=== PATIENT | male | born 1975 | race Caucasian/White ===

== ENCOUNTER 2021-06-21 10:49 | Inpatient (IN) | payer BC, SELFPAY ==
[2021-06-21] VITALS (7 sets, daily range): BP systolic 123–171; BP diastolic 68–86; PULSE 84–106; RESP 15–22; TEMP 36.7; O2SAT 87–98; BMI 60.8
--- NOTE | 2021-06-21 11:07 | W.ED.PSYCHS ---
HPI - Psych General: Chief Complaint: Psychiatric Symptoms Stated Complaint: PSYCH History of Present Illness: HPI Narrative: 46-year-old male presents to the emergency room via EMS. Patient is having acute psychosis with visual and auditory hallucinations at various times he gets extremely aggressive. Is unable to give us any meaningful history he does mention that he has been on Zyprexa and risperidone in the past EMS said they were told he had just started it. EMS was called by a family member at home (mother). On their arrival there he was ambulatory and they were able to coax him to a cot. Patient is extremely large with a BMI of 61. Initially when we attempted to redirect him to sit on the exam gurney he began showing signs of aggressiveness. We were able to convince him eventually to move to the cot. He was given 2 mg of Ativan and 20 and Geodon prior to that. He is not able to give us any further history due to his acute psychosis. complaint: altered mental status Onset (ago): unknown Duration: constant History of same: Yes Relieving factors: none Exacerbating factors: none Associated psychiatric symptoms: auditory hallucinations and visual hallucinations Associated symptoms: Reports auditory hallucinations and visual hallucinations Treatments prior to arrival: none Review of Systems General: Reports: ROS unobtainable due to mental status Psych: Reports: visual hallucinations and auditory hallucinations [facility] ED PFSH: Medical History (Updated 06/24/21 @ 12:46 by Bhupendra Rosario MD) Bipolar 1 disorder HTN (hypertension) Morbid obesity Physical Exam Const: COMMON NORMALS: no acute distress GENERAL APPEARANCE: cooperative and comfortable HENMT: COMMON NORMALS: normocephalic, atraumatic and hearing grossly normal bilaterally HEAD & SCALP: normocephalic and atraumatic Neck/C-Spine: COMMON NORMALS: no JVD Resp: COMMON NORMALS: normal respiratory effort, No retractions, No use of accessory muscles and clear to auscultation bilaterally AUSCULTATION: clear to auscultation bilaterally Cardio: COMMON NORMALS: no JVD, regular rate, regular rhythm and No murmurs present (Cardio) RATE: regular rate RHYTHM: regular rhythm GI: COMMON NORMALS: Soft to palpation and No hepatosplenomegaly present AUSCULTATION: Yes normoactive bowel sounds PALPATION: Yes Soft to palpation, No Tenderness to palpation present (GI), No Guarding due to palpation present (GI) and Yes No hepatosplenomegaly present Extremity: COMMON NORMALS: normal to inspection, capillary refill normal, no clubbing, cyanosis or edema, no calf tenderness and no pedal edema Skin: COMMON NORMALS: no rashes or lesions noted GENERAL SKIN EXAM: no rashes or lesions noted Course Vital Signs: Vital signs: Vital Signs Temperature 98.7 F 06/25/21 14:00 Pulse Rate 86 06/25/21 15:11 Respiratory Rate 16 06/25/21 15:11 Blood Pressure 132/80 06/25/21 14:00 Pulse Oximetry 95 06/25/21 15:11 MDM - Psych MDM Narrative: Medical decision making narrative: Patient sats at the bedside have been around 90% when he is sitting up. He obviously has some sleep apnea although it does not appear he has been formally diagnosed. His mother had reported that he has been told he likely has sleep apnea, a but does not use a CPAP. Nursing a talk to the mother via phone. For a time he was on oxygen. We took him off of it on seated up when he is awake his sats will be in the 90 to 92% range. He does better sitting up I did a blood gas to evaluate him he is well compensated suspect this is his baseline and has been slightly exacerbated by the medications. At time of transfer he was able to follow commands and assist in his transfer to chair. Lab Data: Labs: Lab Results 06/21/21 06/21/21 12:44 12:44 WBC 11.5 10^3/uL H 10 ^3/uL (4.0-10.0) RBC 6.84 10^6/uL H 10 ^6/uL (4.1-5.3) Hgb 16.6 g/dL g/dL (11.7-16.6) Hct 55.0 % H % (42.0-52.0) MCV 80.4 fl fl (80-94) MCH 24.3 pg L pg (28.0-34.0) MCHC 30.2 g/dL g/dL (30.0-36.0) RDW 18.2 % H % (12.1-15.1) Plt Count 364 10^3/cmm 10^3 /cmm (130-400) MPV 8.9 fL fL (7.4-10.4) Neut % (Auto) 64.6 % % Lymph % (Auto) 26.8 % % [place] % (Auto) 4.0 % % Eos % (Auto) 3.5 % % Baso % (Auto) 0.8 % % Neut # (Auto) 7.44 10^3/uL 10^3 /uL (1.8-7.7) Lymph # (Auto) 3.1 10^3/uL 10^3/ uL (0.8-4.8) [place] # (Auto) 0.5 10^3/uL 10^3/ uL (0.2-0.9) Eos # (Auto) 0.4 10^3/uL 10^3/ uL (0.0-0.8) Baso # (Auto) 0.1 10^3/uL 10^3/ uL (0.0-0.1) Nucleated RBC % (a uto) 0 % % Nucleated RBCs # 0.0 /100WBC /100W BC Sodium 137 mmol/L mmol/L (136-145) Potassium 4.5 mmol/L mmol/L (3.5-5.1) Chloride 96 mmol/L L mmol/ L (98-107) Carbon Dioxide 25 mmol/L mmol/L (22-29) Anion Gap 20.5 H (5-19) BUN 10 mg/dL mg/dL (6-20) Creatinine 0.7 mg/dL mg/dL (0.7-1.2) GFR Calculation 121.4 mL/min mL/m in (90-130) Glucose 90 mg/dL mg/dL (65-115) Calculated Osmolal ity 283 mOsm/kg L mOs m/kg (285-295) Calcium 9.0 mg/dL mg/dL (8.5-10.5) Salicylates < 0.3 mg/dL L mg/ dL (3-10) Acetaminophen < 5.0 ug/mL L ug/ mL (10-30) Discharge Plan Discharge Patient Disposition: Admitted As Inpatient Admit Provider: Mal May Clinical Impression: Acute psychosis Condition: Stable Coding Level of Care Code ED Service Technician Copier for Chg Fwd Exam Comprehensive
[2021-06-21] MEDS: LORazepam 2 mg/mL INJ 1 mL IM (11:14)
[2021-06-21] MEDS: ziprasidone 20 mg/mL SDV IM (11:14)
[2021-06-21 12:51] LABS: Basophils # 0.1 10^3/uL (0.0-0.1); Basophils % 0.8 %; Eosinophils # 0.4 10^3/uL (0.0-0.8); Eosinophils % 3.5 %; Hemoglobin 16.6 g/dL (11.7-16.6); Lymphocytes # 3.1 10^3/uL (0.8-4.8); Lymphocytes % 26.8 %; Mean Corpuscular HGB Conc 30.2 g/dL (30.0-36.0); Mean Corpuscular Hemoglobin 24.3 pg (28.0-34.0); Mean Corpuscular Volume 80.4 fl (80-94); Mean Platelet Volume 8.9 fL (7.4-10.4); Monocytes # 0.5 10^3/uL (0.2-0.9); Neutrophils # 7.44 10^3/uL (1.8-7.7); Neutrophils % 64.6 %; Nucleated Red Blood Cells % 0 %; Platelet Count 364 10^3/cmm (130-400); Red Blood Count 6.84 10^6/uL (4.1-5.3); Red Cell Distribution Width 18.2 % (12.1-15.1); White Blood Count 11.5 10^3/uL (4.0-10.0)
[2021-06-21 13:11] LABS: Acetaminophen < 5.0 ug/mL (10-30); Blood Urea Nitrogen 10 mg/dL (6-20); Carbon Dioxide 25 mmol/L (22-29); Chloride 96 mmol/L (98-107); Glomerular Filtration Rate 121.4 mL/min (90-130); Glucose 90 mg/dL (65-115); Osmolality Calculated 283 mOsm/kg (285-295); Salicylate < 0.3 mg/dL (3-10); Sodium 137 mmol/L (136-145)
[2021-06-21 13:12] LABS: Anion Gap 20.5 (5-19); Potassium 4.5 mmol/L (3.5-5.1)
[2021-06-21] MEDS: OLANZapine 10 mg TABLET 20 MG PO (13:39)
[2021-06-21 15:38] LABS: ABG PCO2 49.3 mmHg (35-45); ABG PH Result 7.42 (7.35-7.45); Alveolar-Arterial Oxygen Gradi 4.6 mmHg (5-10); Arterial Blood Gas Hematocrit 51.1 % (42-52); Base Excess ABG 5.9 mmol/L (-2.0-2.0); Blood Gas Allen Test Pos; Blood Gas Operator Identificat ED; Blood Gas Sample Site Radial, left; Blood Gas Sample Type Arterial; Carboxyhemoglobin 1.3 %THgb (0.4-20.1); HCO3 ABG 31.9 mmol/L (22-26); HGB O2 Sat 83.6 % (95-100); Ionized Calcium Level - ABG 1.2 mmol/L (1.1-1.4); Methemoglobin 0.7 % (0.4-1.5); Oxygen Device ROOM AIR; Oxygen Saturation ABG 85.4; PO2 ABG 54.5 mmHg (80.0-100.0); Potassium Level - ABG 3.7 mmol/L (3.5-5.0); Total Hemoglobin 16.7 g/dL (14-18)
--- NOTE | 2021-06-21 20:00 | PC.NURSE ---
pt continues to be sedated, up in bariatric wheelchair, 3.5lL o2 per nasal canula in place. pt is unable to assist staff in position change of any kind.
--- NOTE | 2021-06-22 00:14 | PC.NURSE ---
pt continues to be lethargic, arousable to lite pain for moments only, confused, oriented only to self. pt is on 4L o2 per simple mask placed by respiratory therapist.
[2021-06-22 05:53] VITALS: O2SAT 90
[2021-06-22 06:00] VITALS: BP 140/91; PULSE 96; RESP 18; O2SAT 92
--- NOTE | 2021-06-22 06:40 | P.NPUHP_ITS ---
Providers/Chief Complaint Admitting Physician: Mal May MD Primary Care Provider: Melissa Alva MD Chief Complaint: PSYCH HPI NPU History of Present Illness Hima Nicolas is a 46 year old male who was admitted through the emergency room with the following report: HPI - Psych General: Chief Complaint: Psychiatric Symptoms Stated Complaint: PSYCH History of Present Illness: HPI Narrative: 46-year-old male presents to the emergency room via EMS. Patient is having acute psychosis with visual and auditory hallucinations at various times he gets extremely aggressive. Is unable to give us any meaningful history he does mention that he has been on Zyprexa and risperidone in the past EMS said they were told he had just started it. EMS was called by a family member at home (mother). On their arrival there he was ambulatory and they were able to coax him to a cot. Patient is extremely large with a BMI of 61. Initially when we attempted to redirect him to sit on the exam gurney he began showing signs of aggressiveness. We were able to convince him eventually to move to the cot. He was given 2 mg of Ativan and 20 and Geodon prior to that. He is not able to give us any further history due to his acute psychosis. complaint: altered mental status Onset (ago): unknown Duration: constant History of same: Yes Relieving factors: none Exacerbating factors: none Associated psychiatric symptoms: auditory hallucinations and visual hallucinations Associated symptoms: Reports auditory hallucinations and visual hallucinations Treatments prior to arrival: none The emergency room physician filled out an affidavit stating patient presented to the ER acutely psychotic with visual and auditory hallucinations . He initiated a 96-hour hold. He was admitted to the neuropsychiatry unit for definitive treatment of his psychosis. He is confused and I unable to give much history. What history he gives is probably unreliable. He really had to think about most answers that he gave. Sometimes he was unable to answer my questions. 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 He says that he walks to the bus on his own and when he gets to [facility] he walks to his classroom and is sitting in a regular office chair most of the time. He says that the last time that he went to school was Friday. He says that on Friday his leg was hurting and he was afraid that his leg would break if he got up out of his recliner and went to school. At some point on Friday he was watching the news and became confused. He denies hearing any voices or seeing anything. He says that he went to sleep and somehow he ended up in the emergency room. He denies ever seeing a psychiatrist or being in a psychiatric hospital. He says that he is taking risperidone 1 mg, lisinopril and hydrochlorothiazide. He does say that he has gained a lot of weight over the last 10 years. His mother called and spoke to the director. She said that he has bipolar disorder and had a break 12 years ago. He has been on risperidone since then and has not had a break until recently. She said that he had gained substantial weight over that 12 years and she felt that we should change him to something else. Evidently his doctor tried to change him to Zyprexa but he is only taken that for about 3 days. Meds NPU Home Medications Medication Instructions Recorded Confirmed Last Taken Type Fish Oil 1 cap PO DAILY 06/21/21 06/21/21 Unknown History Vitamin B-12 1 tab PO DAILY 06/21/21 06/21/21 Unknown History aspirin 325 mg PO QAM 06/21/21 06/21/21 Unknown History hydrochlorothiazide 12.5 mg PO BEDTIME 06/21/21 06/21/21 Unknown History lisinopril 20 mg PO DAILY 06/21/21 06/21/21 Unknown History olanzapine 5 mg PO DAILY 06/21/21 06/21/21 Unknown History risperidone 1 mg PO BEDTIME 06/21/21 06/21/21 Unknown History Allergies Allergy/AdvReac Type Severity Reaction Status Date / Time No Known Allergies Allergy Verified 06/21/21 13:49 PFS NPU PFS: Medical History (Updated 06/21/21 @ 17:43 by Harjit Graham DO) Bipolar 1 disorder Morbid obesity Mental Status Exam MSE Comments: This is a 46-year old morbidly obese male who appears about his stated age. He is in a bariatric bed with an oxygen mask on. He is pleasant and cooperative and in no acute distress. psychomotor activity is decreased. It is probably normal for a person of his weight laying in bed Speech is at a regular rate and rhythm, normal volume, good articulation, not pressured. Alert, oriented X3 Attention and concentration appears to be intact. Memory is intact Mood is good, I am a happy person. Affect is euthymic. Thought process is logical and goal-directed. Thought content: Denies auditory and visual hallucinations. No delusions or paranoia are noted. No current suicidal ideation, and no homicidal ideation. Fund of knowledge is appears to be average. Insight and judgment appear to be significantly impaired. Impulse control is def initely impaired. Vitals/I&O/Wt Last Vital Signs Temp 98.0 F 06/21/21 17:33 Pulse 96 06/22/21 06:00 Resp 18 06/22/21 06:00 BP 140/91 06/22/21 06:00 Pulse Ox 92 06/22/21 06:00 Weight last 48 hrs Weight 226.796 kg Data NPU : 06/21/21 12:44 06/21/21 12:44 A&P Additional A&P Information Plan: 1. Continue his medical medications. Discontinue Risperdal. Abilify 5 mg every morning 2. Continue every 15 minute checks for safety. 3. Encourage individual, group and milieu therapies. 4. Encourage sober living treatment after discharge at the highest level of care to which he is willing to commit. 5. We will monitor for safety for himself in the community prior to discharge. Involuntary Hold Information 96 Hour Hold: 96 Hour Involuntary Admission: Yes Attestations NPU Medical Necessity Statement*: Inpatient hospitalization is medically necessary and the clinically appropriate intervention at this time. We will initiate medications and make changes as indicated. He will be in the hospital for over 2 midnights. Likely length of stay 4-6 days Coding Level of Care Code Acute Pigs Feet Finisher for Kris Salazar
[2021-06-22 08:07] VITALS: PULSE 101; O2SAT 88
[2021-06-22] MEDS: aspirin 325 mg Tablet PO (09:47)
[2021-06-22] MEDS: omega-3 fatty acids 1,000 mg Capsule 1000 MG PO (09:47)
[2021-06-22] MEDS: cyanocobalamin 1,000 mcg Tablet 1000 MCG PO (09:47)
[2021-06-22] MEDS: lisinopril 20 mg Tablet PO (09:47)
[2021-06-22 14:00] VITALS: BP 104/72; PULSE 96; RESP 18; TEMP 37; O2SAT 91
[2021-06-22] MEDS: ARIPiprazole 10 mg Tablet 5 MG PO (14:14)
[2021-06-22] MEDS: hydroCHLOROthiazide 25 mg Tablet 12.5 MG PO (20:18)
[2021-06-22] MEDS: risperiDONE 1 mg Tablet PO (20:18)
[2021-06-22 20:43] VITALS: BP 109/66; PULSE 83; RESP 17; TEMP 36.9; O2SAT 92
[2021-06-22 21:46] VITALS: PULSE 77; O2SAT 91
[2021-06-23] VITALS (8 sets, daily range): BP systolic 100–109; BP diastolic 67–70; PULSE 82–116; RESP 18–19; O2SAT 89–94
--- NOTE | 2021-06-23 07:42 | XRR_ITS ---
PROCEDURE INFORMATION: Exam: XR Chest Exam date and time: 06/23/2021 7:42 AM Age: 46 years old Clinical indication: Shortness of breath; Patient HX: SOB; Additional info: Dyspnea/cough TECHNIQUE: Imaging protocol: XR of the chest. Views: 1 view. Total images: 1 COMPARISON: No relevant prior studies available. FINDINGS: Lungs: Trace bilateral mid lung and bibasilar atelectasis or scar. Pleural spaces: Unremarkable. No pleural effusion. No pneumothorax. Heart/Mediastinum: Unremarkable. No cardiomegaly. Bones/joints: Spinal degenerative changes are evident. XR/XR chest 1V portable [id number] IMPRESSION: Trace bilateral mid lung and bibasilar atelectasis or scar.
[2021-06-23] MEDS: aspirin 325 mg Tablet PO (08:29)
[2021-06-23] MEDS: ARIPiprazole 10 mg Tablet 5 MG PO (08:30)
[2021-06-23] MEDS: lisinopril 20 mg Tablet PO (08:32)
[2021-06-23] MEDS: cyanocobalamin 1,000 mcg Tablet 1000 MCG PO (08:32)
[2021-06-23] MEDS: omega-3 fatty acids 1,000 mg Capsule 1000 MG PO (08:32)
--- NOTE | 2021-06-23 11:05 | P.NPUPN_ITS ---
Subjective NPU Subjective: Interval history: He continues to be fairly confused. He said that he did remember talking with me yesterday but did not remember what we talked about. He said that he was somewhat reluctant to take the Abilify because he wanted to talk to his family doctor about it first. He did take it and does not have any ill effects thus far. 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 Did not have any idea how long it had been since he had work. He mentions a couple of times that the world was one-way when he went to sleep last night but it might be different today. It was June when he went to sleep last night but was not sure that it was still June now. He did remember getting a chest x-ray earlier today. He remembered what he had for breakfast and said that it was not very good. He has had 2 doses of Abilify 5 mg so far. His oxygen gets down in the mid 80s when he is away from his oxygen. We got a chest x-ray and respiratory therapy consult. Mental Status Exam MSE Comments: This is a 46-year old morbidly obese male who appears about his stated age. He is in a bariatric bed with an oxygen mask on. He is pleasant and cooperative and in no acute distress. psychomotor activity is decreased. It is probably normal for a person of his weight laying in bed Speech is at a regular rate and rhythm, normal volume, good articulation, not pressured. Alert, oriented X3 Attention and concentration appears to be intact. Memory is intact Mood is good, I am a happy person. Affect is euthymic. Thought process is logical and goal-directed. Thought content: Denies auditory and visual hallucinations. No delusions or paranoia are noted. No current suicidal ideation, and no homicidal ideation. Fund of knowledge is appears to be average. Insight and judgment appear to be significantly impaired. Impulse control is definitely impaired. Cognition: Patient Appearance: Disheveled/Poor Hygiene Level of Consciousness: Inappropriate Patient Cognition Impaired: Yes Ability to Follow Directions: Poor Patient Orientation (long list): Person, Place, Time, Name and Age Comprehension Ability: No Impairment Hallucination Type: None Delusion Description: Not Present Thought Process: Appropriate Affect: Affect Description: Calm Behavior: Patient Behavior: Cooperative Speech Pattern: Clear Vitals/I&O/Wt Last Vital Signs Temp 98.4 F 06/22/21 20:43 Pulse 91 06/23/21 09:40 Resp 18 06/23/21 09:40 BP 109/67 06/23/21 06:00 Pulse Ox 94 06/23/21 09:40 Data NPU : 06/21/21 12:44 06/21/21 12:44 A&P Additional A&P Information This is a 46-year-old morbidly obese male who was brought in for psychosis including auditory hallucinations. He has been very confused and has very bad short-term memory. Plan: 1. Continue his medical medications. Abilify 5 mg every morning 2. Continue every 15 minute checks for safety. 3. Encourage individual, group and milieu therapies. 4. Encourage sober living treatment after discharge at the highest level of care to which he is willing to commit. 5. We will monitor for safety for himself in the community prior to discharge. Involuntary Hold Information 96 Hour Hold: 96 Hour Involuntary Admission: Yes Attestations NPU Medical Necessity Statement*: Inpatient hospitalization is medically necessary and the clinically appropriate intervention at this time. We will initiate medications and make changes as indicated. Coding Level of Care Code Acute Rounding Machine Operator for Kris Salazar
--- NOTE | 2021-06-23 14:50 | PC.NURSE ---
Patient up and walking with staff. Patient on 4L during walk, heart rate 116 and O2 sat down to 89%. After walk, O2 sat 94%, hr 101. Patient denies SOB or chest pain. Patient does deny smoking history.
--- NOTE | 2021-06-23 18:42 | CTR_ITS ---
PROCEDURE INFORMATION: Exam: CTA Chest With Contrast Exam date and time: 06/23/2021 6:42 PM Age: 46 years old Clinical indication: Shortness of breath; Patient HX: SOB. D dimer of over 15. Best scan obtained due to patient body habitus. ; Additional info: Pe TECHNIQUE: Imaging protocol: Computed tomographic angiography of the chest with contrast. 3D rendering (Not supervised by radiologist): MIP and/or 3D reconstructed images were created by the technologist. Radiation optimization: All CT scans at this facility use at least one of these dose optimization techniques: automated exposure control; mA and/or kV adjustment per patient size (includes targeted exams where dose is matched to clinical indication); or iterative reconstruction. Contrast material: VISI 320; Contrast volume: 95 ml; Contrast route: INTRAVENOUS (IV); COMPARISON: CR (CHEST, ) 06/23/2021 8:45 AM RADIATION DOSE METRICS: Total DLP (mGy-cm): 625.52 FINDINGS: Pulmonary arteries: No pulmonary emboli identified in the main, right, and left pulmonary arteries. The pulmonary arterial tree beyond this cannot be well evaluated due to artifact. Aorta: No thoracic aortic aneurysm identified. Lungs: Patchy airspace opacities in the right upper lobe (mild), right lower lobe (moderate), left upper lobe (mild), and left lower lobe (moderate). These may represent any combination of atelectasis and pneumonia. Pleural spaces: No pneumothorax or pleural effusion. Heart: Heart size within normal limits. Lymph nodes: Unremarkable. No enlarged lymph nodes. Bones/joints: Mild degenerative changes of the thoracic spine. Soft tissues: Unremarkable. CT/CT angio chest PE protcl [id number] IMPRESSION: 1. No pulmonary emboli identified in the main, right, and left pulmonary arteries. The pulmonary arterial tree beyond this cannot be well evaluated due to artifact. 2. Lungs: Patchy airspace opacities in the right upper lobe (mild), right lower lobe (moderate), left upper lobe (mild), and left lower lobe (moderate). These may represent any combination of atelectasis and pneumonia.
--- NOTE | 2021-06-23 19:05 | PC.NURSE ---
AFTER WALKING PATIENT HIS O2 STATS CONTINUED TO BE BETWEEN 89-92%. I CALLED DR. HERNANDEZ AGAIN AND TOLD HIM PATIENT CONTINUED TO BE CONFUSED AND 02 STATS CONTINUED TO DROP DURING AMBULATION. DURING REST THE HIGHEST HIS 02 WAS 94% ON 4L. I SPOKE TO DR. CARRASQUILLO AND HE HAS ORDERED LAB WORK AND TRANSFERRED PATIENT TO [facility] 112-1.
[2021-06-23 19:11] LABS: Basophils # 0.1 10^3/uL (0.0-0.1); Basophils % 0.6 %; Eosinophils # 0.4 10^3/uL (0.0-0.8); Eosinophils % 3.8 %; Lymphocytes # 2.5 10^3/uL (0.8-4.8); Mean Corpuscular HGB Conc 29.4 g/dL (30.0-36.0); Mean Corpuscular Hemoglobin 24.4 pg (28.0-34.0); Mean Corpuscular Volume 82.9 fl (80-94); Mean Platelet Volume 9.3 fL (7.4-10.4); Monocytes # 0.6 10^3/uL (0.2-0.9); Monocytes % 5.6 %; Neutrophils # 6.78 10^3/uL (1.8-7.7); Neutrophils % 65.7 %; Nucleated Red Blood Cells % 0 %; Platelet Count 328 10^3/cmm (130-400); Red Blood Count 6.15 10^6/uL (4.1-5.3); Red Cell Distribution Width 16.8 % (12.1-15.1); White Blood Count 10.3 10^3/uL (4.0-10.0)
[2021-06-23 19:30] LABS: SARS Covid-2 Antigen Negative (Negative)
[2021-06-23 19:37] LABS: NT Pro B Type Natriuretic Pept 11 pg/mL (0-125); Procalcitonin 0.07 ng/mL (0-0.5)
[2021-06-23 19:41] LABS: D Dimer 15.39 ug/mIFEU (0-0.59)
[2021-06-23 19:48] LABS: Thyroid Stimulating Hormone 1.94 uIU/mL (0.27-4.20)
[2021-06-23 19:49] LABS: Alanine Aminotransferase 13 U/L (0-41); Albumin Level 3.5 g/dL (3.5-5.2); Alkaline Phosphatase 81 IU/L (40-130); Anion Gap 17.2 (5-19); Aspartate Amino Transferase 15 U/L (0-40); Blood Urea Nitrogen 30 mg/dL (6-20); Calcium 8.4 mg/dL (8.5-10.5); Carbon Dioxide 27 mmol/L (22-29); Chloride 96 mmol/L (98-107); Globulin 3.4 g/dL (1.3-4.6); Glomerular Filtration Rate 59.4 mL/min (90-130); Glucose 109 mg/dL (65-115); Iron 27 ug/dL (59-158); Osmolality Calculated 289 mOsm/kg (285-295); Potassium 4.2 mmol/L (3.5-5.1); Sodium 136 mmol/L (136-145); Total Bilirubin 0.5 mg/dL (0.15-1.2); Total Iron Binding Capacity 299 mcg/dl; Total Protein 6.9 g/dL (6.6-8.7); Unsaturated Iron Binding 272 ug/dL (112-347)
--- NOTE | 2021-06-23 21:08 | ECG_ITS ---
[facility] Test Date: 2021-06-23 Pat Name: Hima Nicolas Department: Room: 112 Gender: Male Combine Driver: : 1975 Requested By: Paola Moy Order Number: [id number] Reading MD: ROBBIE BOTELLO Measurements Intervals [place] Rate: 85 P: 66 VT: 162 QRS: 14 QRSD: 105 T: 49 QT: 360 QTc: 429 Interpretive Statements SINUS RHYTHM INDETERMINATE AXIS INCOMPLETE RIGHT BUNDLE BRANCH BLOCK [90+ ms QRS DURATION, TERMINAL R IN V1/V2, 40+ ms S IN I/aVL/V4/V5/V6] No previous ECG available for comparison Electronically Signed On 06-24-2021 19:58:34 RIDER TICKET WORKER by ROBBIE BOTELLO [email or web address]
[2021-06-23 21:24] LABS: Add Urine Microscopic? NO; Charge for UA Resulting for Rev
[2021-06-23 21:38] LABS: Bilirubin Urine Neg (Negative); Blood Urine Neg (Negative); Glucose Urine UA Norm (Normal); Ketones Urine Negative (Negative); Leukocyte Esterase Urine Negative (Negative); Nitrate Urine Negative (Negative); Protein Urine Neg (Negative); Specific Gravity, Urine 1.025 (1.005-1.030); Urine Appearance Clear (CLEAR); Urine Color Yellow (Yellow); Urobilinogen Urine 4 mg/dL (Negative); pH Urine 5 (5-7)
[2021-06-23 21:58] LABS: Potassium, Radom Urine 41 mmol/L; Urine Creatinine 298 mg/dL (39-259); Urine Random Chloride 10 mmol/L; Urine Random Sodium 46 mmol/L
[2021-06-23 22:00] LABS: C Reactive Protein 38.1 mg/L (0.0-4.9); Lactate Dehydrogenase 146 U/L (135-225)
[2021-06-23 22:12] LABS: Arterial Blood Gas Hematocrit 46.4 % (42-52); Base Excess ABG 6.2 mmol/L (-2.0-2.0); Blood Gas Allen Test Pos; Blood Gas Operator Identificat glc; Blood Gas Sample Site Radial, right; Blood Gas Sample Type Arterial; HCO3 ABG 35.6 mmol/L (22-26); Oxygen Device OXY MASK; PO2 ABG 81.8 mmHg (80.0-100.0)
[2021-06-23 22:15] LABS: ABG PCO2 72.4 mmHg (35-45)
[2021-06-23 22:16] LABS: Erythrocyte Sedimentation Rate 66 mm/hr (0-10)
[2021-06-23] MEDS: ipratropium-albuterol 3 mL Neb INHALATION (22:25)
[2021-06-23] MEDS: budesonide 0.5 mg/2 mL Neb INHALATION (22:26)
[2021-06-23 23:24] LABS: Eosinophil Urine No Eosinophils Seen
[2021-06-23 23:25] LABS: Urine Eosinophil Count 0 (0-0)
[2021-06-23] MEDS: heparin drip 25,000 UNIT/500 ML PREMIX 36 UNIT IV (23:36)
[2021-06-23] MEDS: heparin 5,000 unit/mL INJ 1 mL IV (23:38)
--- NOTE | 2021-06-23 23:49 | P.CONIM_ITS ---
Providers/Reason For Consult Consulting Physician/Specialty*: Paola Myo MD Reason for Consult*: Hypoxia Attending Physician: Mal May MD Primary Care Provider: Melissa Alva MD History of Present Illness History of Present Illness Hima Nicolas is a 46 year old male with PMH bipolar disorder admitted to [facility] 2 days ago with c/o acute psychosis. Noted to have 02 sat 89-90% on, has been on supplemetal 02.today noted to have dropped to high 80s on exertion for which medicine service was consulted. ABG upon ER arrival with compensated chronic hypercapnea. Patient denies any current chest pain, dyspnea, palpitations, syncope. no h/o sleep apnea, does not norallu use CPAP. No h/o COPD. no h/o cardiac abnormalities, CAD. D dimer notes to be elvated at 15, CTA pending. Vaccinated for COVID 19 Review of Systems General: Reports: 10 or more systems reviewed and unremarkable except in HPI and below Const: Denies: fever(s), chills or body aches Eyes: Denies: change in vision, blurry vision or photophobia ENMT: Reports: hoarseness; Denies: throat pain, enlarged tonsils, odynophagia or nasal congestion Card: Denies: chest pain, palpitations, irregular heart rhythm, edema, swelling of feet/ankles, lightheadedness, pre-syncope, dyspnea on exertion or orthopnea Resp: Denies: dyspnea, productive cough, non-productive cough, wheezing, stridor, pain on inspiration, change in phlegm color, hemoptysis or chest congestion GI: Denies: abdominal pain, nausea, vomiting, hematemesis, coffee ground emesis, dysphagia, heartburn, diarrhea, constipation, GI cramping, change in stool character, hematochezia or melena : Denies: flank pain, dysuria, urinary frequency, urinary urgency, urinary hesitancy or hematuria Musc: Denies: neck pain, back pain, extremity pain, joint swelling, joint warmth or deformity Neuro: Denies: headache(s), numbness in extremities, weakness in extremities, sensory changes, difficulty walking, frequent falls, dizziness, vertigo, behavioral changes, Slurred speech present or seizure-like activity Psych: Denies: anxiety, depression, suicidal ideation or homicidal ideation Endo: Denies: polyuria, polydipsia, tired all the time, cold intolerance or hot flashes John/Lymph: Denies: easy bruising or easy bleeding Meds/Allergies Home Medications and Allergies Home Medications Medication Instructions Recorded Confirmed Last Taken Type Fish Oil 1 cap PO DAILY 06/21/21 06/21/21 Unknown History Vitamin B-12 1 tab PO DAILY 06/21/21 06/21/21 Unknown History aspirin 325 mg PO QAM 06/21/21 06/21/21 Unknown History hydrochlorothiazide 12.5 mg PO BEDTIME 06/21/21 06/21/21 Unknown History lisinopril 20 mg PO DAILY 06/21/21 06/21/21 Unknown History olanzapine 5 mg PO DAILY 06/21/21 06/21/21 Unknown History risperidone 1 mg PO BEDTIME 06/21/21 06/21/21 Unknown History Allergies Allergy/AdvReac Type Severity Reaction Status Date / Time No Known Allergies Allergy Verified 06/21/21 13:49 Current Medications Current Medications Generic Name Dose Route Start Last Admin Trade Name Freq PRN Reason Stop Dose Admin Albuterol/Ipratropium 3 ml 06/23/21 21:00 06/23/21 22:25 Ipratropium-Albuterol 3 Ml Neb INHALATION 3 ml Q6H.RESPIRATORY JOSHUA Administration Aripiprazole 5 mg 06/22/21 13:25 06/23/21 08:30 Aripiprazole 10 Mg Tablet PO 5 mg DAILY JOSHUA Administration Aspirin 325 mg 06/22/21 06:00 06/23/21 08:29 Aspirin 325 Mg Tablet PO 325 mg QAM JOSHUA Administration Benzonatate 100 mg 06/23/21 21:00 06/23/21 21:02 Benzonatate 100 Mg Capsule PO Not Given TID JOSHUA Budesonide 0.5 mg 06/23/21 20:00 06/23/21 22:26 Budesonide 0.5 Mg/2 Ml Neb INHALATION 0.5 mg BID.RESPIRATORY JOSHUA Administration Cyanocobalamin 1,000 mcg 06/22/21 09:00 06/23/21 08:32 Cyanocobalamin 1,000 Mcg Tablet PO 1,000 mcg DAILY JOSHUA Administration Heparin Sodium (Porcine) 0 unit 06/23/21 21:05 06/23/21 23:38 Heparin 5,000 Unit/Ml Inj 1 Ml IV 7,000 unit PRN PRN Administration Heparin weight-base protocol Protocol Heparin Sodium/Sodium Chloride 25,000 unit in 500 mls @ 0 mls/hr 06/23/21 21:15 06/23/21 23:36 Heparin Drip IV 7.94 unit/kg/hr .Q0M JOSHUA 36 mls/hr Administration Protocol Per Protocol Lisinopril 20 mg 06/22/21 09:00 06/23/21 08:32 Lisinopril 20 Mg Tablet PO 20 mg DAILY JOSHUA Administration Vokjj-4-Paie Ethyl Esters 1,000 mg 06/22/21 09:00 06/23/21 08:32 [place]-3 Fatty Acids 1,000 Mg Capsule PO 1,000 mg DAILY JOSHUA Administration PFSH Acute PFSH: Medical History (Updated 06/24/21 @ 00:14 by Paola Moy MD) Bipolar 1 disorder Morbid obesity Vitals/I&O/Wt Last Vital Signs Temp 98.4 F 06/22/21 20:43 Pulse 89 06/23/21 22:36 Resp 18 06/23/21 22:28 BP 102/70 06/23/21 20:21 Pulse Ox 93 06/23/21 22:28 Physical Exam Narrative: EXAM NARRATIVE: GEN: Awake, alert and oriented, no acute distress CVS: S1S2 N RS: CTA B/L Abd: Soft, nt/nd , bs+ DINING ROOM MAID: no focal neuro deficits Data Micro: Micro: Microbiology 06/23/21 18:50 Blood Culture - Pr eliminary Blood SPECIMEN [facility] VIKTORIYA 06/23/21 18:56 Blood Culture - Pr eliminary Blood SPECIMEN [facility] A&P Assessment and plan (1) Hypoxia: Noted to be hypoxic, though patient denies any acute symptoms Check D dimer elevated at 15, awaiting CTA chest to evaluate for PE , started on heparin drip in the interim Obtain ABG, noted to have compensated hypercapneic respiratory failure on ABG from admission Suspect obesity hypoventilation may be the underlying cause if CTA returns normal check Covid PCR CXR without gross infiltrates Echocardiogram to evalute for pulmonary HTN, EF, diastolic function Status: Acute Consult Attestations Medical Necessity Statement: hypoxia under evaluation Coding Level of Care Code Acute Hot Dimpling Machine Operator for g Fw Diagnoses Hypoxia R09.02
[2021-06-24] VITALS (14 sets, daily range): BP systolic 85–115; BP diastolic 56–83; PULSE 84–92; RESP 16–24; O2SAT 89–97
[2021-06-24] MEDS: ipratropium-albuterol 3 mL Neb INHALATION ×4 (02:31→21:43)
[2021-06-24 02:35] LABS: Ferritin 78 ng/mL (30-400)
--- NOTE | 2021-06-24 06:00 | XRR_ITS ---
PROCEDURE INFORMATION: Exam: XR Chest Exam date and time: 06/24/2021 6:00 AM Age: 46 years old Clinical indication: Shortness of breath; Additional info: Covid TECHNIQUE: Imaging protocol: XR of the chest. Views: 1 view. COMPARISON: CR (CHEST, ) 06/23/2021 8:45 AM FINDINGS: Lungs: There are increasing bibasilar pulmonary infiltrates and atelectasis since previous chest x-ray. There is a poor inspiration with elevation of the diaphragm. Pleural spaces: Unremarkable. No pleural effusion. No pneumothorax. Heart/Mediastinum: Unremarkable. No cardiomegaly. Bones/joints: Unremarkable. XR/XR chest 1V portable [id number] IMPRESSION: There are increasing bibasilar pulmonary infiltrates and atelectasis.
[2021-06-24] MEDS: aspirin 325 mg Tablet PO (06:06)
[2021-06-24 06:13] LABS: ABG PH Result 7.28 (7.35-7.45); Alveolar-Arterial Oxygen Gradi 0.2 mmHg (5-10); Arterial Blood Gas Hematocrit 45.9 % (42-52); Base Excess ABG 4.5 mmol/L (-2.0-2.0); Blood Gas Allen Test Pos; Blood Gas Sample Site Radial, left; Blood Gas Sample Type Arterial; Carboxyhemoglobin 1.3 %THgb (0.4-20.1); HCO3 ABG 33.9 mmol/L (22-26); HGB O2 Sat 89.3 % (95-100); Ionized Calcium Level - ABG 1.2 mmol/L (1.1-1.4); Methemoglobin 0.7 % (0.4-1.5); Oxygen Device NC; Oxygen Saturation ABG 91.1; PO2 ABG 64.3 mmHg (80.0-100.0); Potassium Level - ABG 4.1 mmol/L (3.5-5.0)
[2021-06-24 06:18] LABS: ABG PCO2 71.4 mmHg (35-45)
[2021-06-24 06:55] LABS: Partial Thromboplastin Time 53.6 SECONDS (23.9-36.7)
[2021-06-24 07:06] LABS: Chol HDL Ratio 3.51 mg/dL (1.0-5.00); Cholesterol 130 mg/dL (0-200); HDL Cholesterol 37 mg/dL (60-100); LDL Cholesterol Calculated 70 mg/dL (50-129); Triglycerides 117 mg/dL (0-150); VLDL Cholestrol Calculation 23 mg/dL (0-30)
[2021-06-24 07:20] LABS: Estmated Average Glucose 140; Hemoglobin A1C 6.5 % (4.0-6.0)
[2021-06-24 07:24] LABS: Influenza A by IFA Negative (Negative); Influenza B by IFA Negative (Negative)
[2021-06-24] MEDS: omega-3 fatty acids 1,000 mg Capsule 1000 MG PO (08:37)
[2021-06-24] MEDS: zinc gluconate 50 mg Tablet PO (08:37)
[2021-06-24] MEDS: ARIPiprazole 10 mg Tablet 5 MG PO (08:37)
[2021-06-24] MEDS: cyanocobalamin 1,000 mcg Tablet 1000 MCG PO (08:38)
[2021-06-24] MEDS: ferrous gluconate 324 mg Tablet PO ×2 (08:38→18:45)
[2021-06-24] MEDS: heparin 5,000 unit/mL INJ 1 mL IV (08:38)
[2021-06-24 08:48] LABS: Basophils # 0.1 10^3/uL (0.0-0.1); Basophils % 0.6 %; Eosinophils # 0.3 10^3/uL (0.0-0.8); Eosinophils % 4.1 %; Hematocrit 50.4 % (42.0-52.0); Hemoglobin 14.6 g/dL (11.7-16.6); Lymphocytes # 2.2 10^3/uL (0.8-4.8); Lymphocytes % 28.4 %; Mean Corpuscular Hemoglobin 24.2 pg (28.0-34.0); Mean Corpuscular Volume 83.6 fl (80-94); Mean Platelet Volume 9.4 fL (7.4-10.4); Monocytes # 0.4 10^3/uL (0.2-0.9); Monocytes % 4.8 %; Neutrophils # 4.84 10^3/uL (1.8-7.7); Neutrophils % 61.8 %; Nucleated Red Blood Cells % 0 %; Platelet Count 294 10^3/cmm (130-400); Red Blood Count 6.03 10^6/uL (4.1-5.3); Red Cell Distribution Width 16.7 % (12.1-15.1); White Blood Count 7.8 10^3/uL (4.0-10.0)
[2021-06-24 09:08] LABS: Alanine Aminotransferase 14 U/L (0-41); Albumin Level 3.7 g/dL (3.5-5.2); Alkaline Phosphatase 84 IU/L (40-130); Anion Gap 15.3 (5-19); Aspartate Amino Transferase 15 U/L (0-40); Blood Urea Nitrogen 26 mg/dL (6-20); Calcium 8.3 mg/dL (8.5-10.5); Carbon Dioxide 28 mmol/L (22-29); Chloride 97 mmol/L (98-107); Globulin 3.4 g/dL (1.3-4.6); Glomerular Filtration Rate 80.4 mL/min (90-130); Glucose 114 mg/dL (65-115); Osmolality Calculated 288 mOsm/kg (285-295); Potassium 4.3 mmol/L (3.5-5.1); Sodium 136 mmol/L (136-145); Total Bilirubin 0.5 mg/dL (0.15-1.2); Total Protein 7.1 g/dL (6.6-8.7)
--- NOTE | 2021-06-24 09:45 | P.NPUPN_ITS ---
Subjective NPU Subjective: Interval history: He continues to be fairly confused. He was able to tell me that it was June 24 despite the calendar on his wall saying it was June 22. He recognized the discrepancy. He denies having any auditory or visual hallucinations. He said that he has not had any since he has been here. He did not remember telling them in the emergency room that he had any hallucinations. He said that he is feeling better physically. He did ask me about the change from risperidone to aripiprazole. It was explained again that this was in hopes of decreasing side effects of appetite increase from the risperidone. He said that he does feel less hungry since he has been on the aripiprazole. It is hoped that his lungs will function better w ith good medical treatment and that his confusion may decrease. Mental Status Exam MSE Comments: This is a 46-year old morbidly obese male who appears about his stated age. He is in a bariatric bed with an oxygen from nasal cannula. He is pleasant and cooperative and in no acute distress. psychomotor activity is decreased. It is probably normal for a person of his weight laying in bed Speech is at a regular rate and rhythm, normal volume, good articulation, not pressured. Alert, oriented X3 Attention and concentration appears to be intact. Memory is decreased. He has little recollection for recent events. Mood is good. Affect is euthymic. Thought process is logical and goal-directed. Thought content: Denies auditory and visual hallucinations. No delusions or paranoia are noted. No current suicidal ideation, and no homicidal ideation. Fund of knowledge is appears to be average. Insight and judgment appear to be significantly impaired. Impulse control is definitely impaired. Cognition: Patient Appearance: Disheveled/Poor Hygiene Level of Consciousness: Inappropriate Patient Cognition Impaired: Yes Ability to Follow Directions: Poor Patient Orientation (long list): Person, Place, Time, Name and Age Comprehension Ability: No Impairment Hallucination Type: None Delusion Description: Not Present Thought Process: Appropriate Affect: Affect Description: Appropriate Behavior: Patient Behavior: Appropriate Speech Pattern: Appropriate Vitals/I&O/Wt Last Vital Signs Temp 98.4 F 06/22/21 20:43 Pulse 87 06/24/21 04:42 Resp 20 H 06/24/21 03:32 BP 85/56 06/24/21 03:32 Pulse Ox 89 L 06/24/21 03:32 Weight last 48 hrs Weight 226.433 kg Data NPU : 06/24/21 08:34 06/24/21 08:34 Micro: Microbiology 06/23/21 19:13 Bacterial Antigens - Final Urine Kidney 06/23/21 19:13 Legionella Urinary Antigen - Final Urine,Clean Catch 06/23/21 18:50 Blood Culture - Preliminary Blood SPECIMEN COLLECTED 06/23/21 18:56 Blood Culture - Preliminary Blood SPECIMEN COLLECTED Microbiology 06/23/21 19:13 Urine Kidney Bacterial Antigens - Final 06/23/21 19:13 Urine,Clean Catch Legionella Urinary Antigen - Final 06/23/21 18:50 Blood Blood Culture - Preliminary SPECIMEN COLLECTED 06/23/21 18:56 Blood Blood Culture - Preliminary SPECIMEN COLLECTED A&P Additional A&P Information This is a 46-year-old morbidly obese male who was brought in for psychosis including auditory hallucinations. He has been very confused and has very bad short-term memory. Plan: 1. Continue his medical medications. Abilify 5 mg every morning 2. Continue every 15 minute checks for safety. He does not need a sitter. He is not suicidal and has not had any unusual behaviors. 3. Encourage individual, group and milieu therapies. 4. Encourage sober living treatment after discharge at the highest level of care to which he is willing to commit. 5. We will monitor for safety for himself in the community prior to discharge. Involuntary Hold Information 96 Hour Hold: 96 Hour Involuntary Admission: Yes Attestations [facility] Medical Necessity Statement*: Inpatient hospitalization is medically necessary and the clinically appropriate intervention at this time. We will initiate medications and make changes as indicated. Coding Level of Care Code Acute Maker Up Folding for Kris Salazar
[2021-06-24] MEDS: FUROsemide 10 mg/mL SDV 4mL 40 MG IVP (10:29)
[2021-06-24] MEDS: budesonide 0.5 mg/2 mL Neb INHALATION ×2 (10:46→21:42)
--- NOTE | 2021-06-24 12:36 | PM.PN ---
Subjective Subjective: Interval history: Transferred from [facility] yesterday for oxygen requirements. Overnight patient at start was on oxygen mask 4 L transitioned over to 2 L nasal cannula. Today morning patient is awake alert, sitting comfortably in bed able to have complete conversation without any hallucination. Denies any nausea vomiting, headache. 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 Denies any excessive cough or expectoration. Complaining of pain in right calf muscle. States was being worked up as an outpatient by his primary care provider for obstructive sleep apnea and is in process of getting an appointment for sleep study. Vitals/I&O/Wt Last Vital Signs Temp 98.4 F 06/22/21 20:43 Pulse 88 06/24/21 11:00 Resp 16 06/24/21 11:00 BP 85/56 06/24/21 03:32 Pulse Ox 93 06/24/21 11:00 06/23/21 06/24/21 06/24/21 22:59 06:59 14:59 Intake Total 360 / 360 Output Total 400 / 400 Balance -40 / -40 Weight last 48 hrs Weight 226.433 kg Physical Exam Narrative: EXAM NARRATIVE: General: No acute distress, AO x3, morbidly obese, not anxious HEENT: PERRLA, pupils bilaterally equal and reactive Chest: Bilateral decreased air entry, occasional rhonchi CVS: S1-S2 regular, distant heart sounds, no murmurs, no tachycardia, no gallops, no rubs Abdomen: Soft, nontender, no organomegaly, bowel sounds present Neuro: No focal deficits, no facial deformity, AO x3, power 5/5 in all limbs Data : 06/24/21 08:34 06/24/21 08:34 Micro: Microbiology 06/23/21 19:00 MRSA Culture - Final Nose 06/23/21 19:13 Bacterial Antigens - Final Urine Kidney 06/23/21 19:13 Legionella Urinary Antigen - Final Urine,Clean Catch 06/23/21 18:50 Blood Culture - Preliminary Blood SPECIMEN COLLECTED 06/23/21 18:56 Blood Culture - Preliminary Blood SPECIMEN COLLECTED A&P Assessment and plan (1) Hypercapnia: Status: Acute (2) Hypoxia: Status: Acute (3) ANGELA (obstructive sleep apnea): Status: Suspected (4) Uncompensated respiratory acidosis: Status: Acute (5) KT (acute kidney injury): Status: Acute (6) HTN (hypertension): Status: Acute (7) Morbid obesity: Status: Acute (8) Acute psychosis: Status: Acute Additional A&P Information Acute hypoxic and hypercapnic respiratory failure: Most likely patient has an undiagnosed obstructive sleep apnea. ABG showing mild respiratory acidosis with CO2 of 71. Patient awake and alert. ABG on 06/21 also showed hypercapnia with CO2 of 50 with a normal pH. D-dimer elevated. 15.3 yesterday. CTA negative for central pulmonary embolism. Lower limb Dopplers negative for DVT. Stop heparin drip. Transition to heparin at prophylactic dose. Check urine Legionella, bacterial antigen, COVID-19 PCR, sputum culture, blood culture. Pneumonia less likely for now. Hold off on antibiotics for now. We will started patient has fever. DuoNebs every 6 hour, budesonide twice daily. Trial of CPAP/BiPAP. Repeat ABG if patient tolerates BiPAP for 2 hours. Patient agreeable to try it. Oxygen supplementation keeping saturation over 88%. Acute kidney injury: Baseline creatinine seems to be normal. Most likely secondary to poor oral hydration along with respiratory acidosis. Repeat CMP today morning. Medical reconciliation done for nephrotoxic drugs. Hold off on lisinopril for now. Hypertension: Goal blood pressure less than 140/90 Amici. Blood pressure soft. Hold off on antihypertensives for now. Acute psychosis: Could be secondary to hypercapnia. For now continue treatment as per psychiatric team. Full code. Regular diet. Famotidine for PUD prophylaxis. Heparin for DVT prophylaxis. Attestations Medical Necessity Statement*: Requires further hospitalization for management of acute hypoxic and hypercapnic respiratory failure secondary to undiagnosed sleep apnea, respiratory acidosis, acute kidney injury Time Spent in Patient Care: Greater than 35 minutes Coding Level of Care Code Acute Dimensional Inspector for [facility] Fwd Diagnoses Hypercapnia R06.89 Hypoxia R09.02 ANGELA (obstructive sleep apnea) G47.33 Uncompensated respiratory acidosis E87.2 KT (acute kidney injury) N17.9 HTN (hypertension) I10 Morbid obesity E66.01 Acute psychosis F23
[2021-06-24] MEDS: heparin 5,000 unit/mL INJ 1 mL 5000 UNIT SUBCUT ×2 (13:36→21:12)
[2021-06-24 14:36] LABS: Partial Thromboplastin Time 31.6 SECONDS (23.9-36.7)
[2021-06-24 15:58] LABS: ABG PH Result 7.37 (7.35-7.45); Alveolar-Arterial Oxygen Gradi 12.6 mmHg (5-10); Arterial Blood Gas Hematocrit 47.2 % (42-52); Base Excess ABG 9.1 mmol/L (-2.0-2.0); Blood Gas Allen Test Pos; Blood Gas Sample Site Radial, right; Blood Gas Sample Type Arterial; Carboxyhemoglobin 1.2 %THgb (0.4-20.1); HCO3 ABG 37.3 mmol/L (22-26); HGB O2 Sat 93.6 % (95-100); Ionized Calcium Level - ABG 1.2 mmol/L (1.1-1.4); Methemoglobin 0.8 % (0.4-1.5); Oxygen Device BIPAP; Oxygen Saturation ABG 95.5; PO2 ABG 76.7 mmHg (80.0-100.0); Potassium Level - ABG 3.9 mmol/L (3.5-5.0); Total Hemoglobin 15.4 g/dL (14-18)
[2021-06-24 16:16] LABS: ABG PCO2 64.9 mmHg (35-45)
--- NOTE | 2021-06-24 18:40 | USCV_ITS ---
Hima Nicolas Age: 46 Gender: M : 1975 Exam Date: 06/24/2021 07:03 Ordering Phys: Bhupendra Rosario MD Technologist: JANIS Exam Location: [facility] [place] Indication: CHF BP: 85 / 56 HR: 78 Rhythm: Sinus Technical Quality: Technically difficult study MEASUREMENTS (Male / Female) Normal Values 2D ECHO LV Diastolic Diameter PLAX 5.6 cm 4.2 - 5.9 / 3.9 - 5.3 cm LV Systolic Diameter PLAX 3.8 cm IVS Diastolic Thickness 1.4 cm 0.6 - 1.0 / 0.6 - 0.9 cm IVS Systolic Thickness 2.2 cm LVPW Diastolic Thickness 1.5 cm 0.6 - 1.0 / 0.6 - 0.9 cm LVPW Systolic Thickness 1.4 cm RV Chamber Size 3.0 cm LVOT Diameter 2.1 cm LV Ejection Fraction 2D Teich 59.3 % LA Diameter 3.3 cm LA Width 2.4 cm LA Height 5.5 cm RA Width 2.9 cm RA Height 5.7 cm Aorta at Sinotubular Diameter 3.0 cm M-MODE LV Diastolic Diameter MM 5.1 cm 4.2 - 5.9 / 3.9 - 5.3 cm LV Systolic Diameter MM 3.6 cm LV Ejection Fraction MM Teich 56.6 % IVS Diastolic Thickness MM 1.8 cm 0.6 - 1.0 / 0.6 - 0.9 cm IVS Systolic Thickness MM 2.0 cm LVPW Diastolic Thickness MM 1.8 cm 0.6 - 1.0 / 0.6 - 0.9 cm LVPW Systolic Thickness MM 1.8 cm RV Diastolic Diameter MM 1.8 cm Aortic Annulus Diameter 3.8 cm LA Ao Ratio MM 1.0 MV E Point Septal Separation 0.6 cm DOPPLER AV Peak Velocity 132.0 cm/s LVOT Peak Velocity 110.0 cm/s AV Area Cont Eq vti 3.0 cm squared AV Area Cont Eq pk 3.0 cm squared MV Area PHT 3.9 cm squared Mitral E to A Ratio 2.0 MV E' Velocity 83.3 cm/s TV Peak E Velocity 61.0 cm/s Right Atrial Pressure 15.0 mmHg RV Acceleration Time 0.1 s RV Ejection Time 0.3 s RV AcT/ET 0.4 FINDINGS Left Ventricle Normal left ventricular cavity size. Normal left ventricular systolic function. Left ventricular ejection fraction is estimated at 55 %. There appeared to be septal bounce which could be secondary to interventricular conduction delay or postoperative state. Right Ventricle The right ventricle is normal in size and function. Right Atrium The right atrium is normal in size. Left Atrium The left atrium is normal in size. Mitral Valve Structurally normal mitral valve without significant stenosis or prolapse. There is no mitral regurgitation. Aortic Valve Aortic valve not well visualized. Tricuspid Valve Trace tricuspid valve regurgitation. Pulmonic Valve Structurally normal pulmonic valve without significant stenosis. There is no pulmonic regurgitation. Pericardium Normal pericardium without effusion. Aorta Normal ascending aorta dimension. CONCLUSIONS 1-Normal left ventricular cavity size. Normal left ventricular systolic function. Left ventricular ejection fraction is estimated at 55 %. There appeared to be septal bounce which could be secondary to interventricular conduction delay or postoperative state. 2-There is no pericardial effusion. 3-No significant valve abnormalities though aortic valve was not well visualized perhaps normal 4-Right atrial pressure is around 10 mm of mercury. 5-There are no prior echocardiogram studies to compare. Eugenia Holbrook MD (Electronically Signed) Final Date: 24 June 2021 19:55 S
[2021-06-24] MEDS: benzonatate 100 mg Capsule PO ×2 (18:45→21:13)
--- NOTE | 2021-06-24 21:06 | USR_ITS ---
PROCEDURE INFORMATION: Exam: US Duplex Lower Extremity Veins, Bilateral Exam date and time: 06/24/2021 9:06 PM Age: 46 years old Clinical indication: Abnormal findings; Abnormal lab test; Elevated d-dimer; Additional info: Elevated dimer, order clarified with Dr davison TECHNIQUE: Imaging protocol: Real-time duplex ultrasound of the extremities with 2-D peterson scale, color Doppler flow and spectral waveform analysis with image documentation. Complete exam focused on the bilateral lower extremity veins. COMPARISON: No relevant prior studies available. FINDINGS: Right deep veins: Unremarkable. The common femoral, femoral, proximal profunda femoral and popliteal veins are patent without thrombus. Normal Doppler waveforms. Normal compressibility and/or augmentation response. Right superficial veins: Saphenofemoral junction is patent without thrombus. Left deep veins: Unremarkable. The common femoral, femoral, proximal profunda femoral and popliteal veins are patent without thrombus. Normal Doppler waveforms. Normal compressibility and/or augmentation response. Left superficial veins: Saphenofemoral junction is patent without thrombus. Soft tissues: Unremarkable. US/CV venous duplex [facility] [id number] IMPRESSION: No evidence of deep vein thrombosis.
[2021-06-25] VITALS (18 sets, daily range): BP systolic 112–192; BP diastolic 79–94; PULSE 76–88; RESP 16–23; TEMP 36.6–37.1; O2SAT 20–96
[2021-06-25] MEDS: ipratropium-albuterol 3 mL Neb INHALATION ×4 (02:31→21:31)
[2021-06-25] MEDS: heparin 5,000 unit/mL INJ 1 mL 5000 UNIT SUBCUT ×3 (02:39→21:05)
[2021-06-25 04:20] LABS: Basophils # 0.1 10^3/uL (0.0-0.1); Basophils % 0.8 %; Eosinophils # 0.4 10^3/uL (0.0-0.8); Eosinophils % 4.4 %; Hematocrit 48.6 % (42.0-52.0); Hemoglobin 14.4 g/dL (11.7-16.6); Lymphocytes # 2.5 10^3/uL (0.8-4.8); Lymphocytes % 30.4 %; Mean Corpuscular HGB Conc 29.6 g/dL (30.0-36.0); Mean Corpuscular Hemoglobin 24.4 pg (28.0-34.0); Mean Corpuscular Volume 82.2 fl (80-94); Mean Platelet Volume 9.3 fL (7.4-10.4); Monocytes # 0.5 10^3/uL (0.2-0.9); Monocytes % 5.9 %; Neutrophils # 4.82 10^3/uL (1.8-7.7); Neutrophils % 58.3 %; Nucleated Red Blood Cells % 0 %; Platelet Count 275 10^3/cmm (130-400); Red Blood Count 5.91 10^6/uL (4.1-5.3); Red Cell Distribution Width 16.5 % (12.1-15.1); White Blood Count 8.3 10^3/uL (4.0-10.0)
[2021-06-25 04:40] LABS: C Reactive Protein 27.5 mg/L (0.0-4.9)
[2021-06-25 04:43] LABS: Alanine Aminotransferase 17 U/L (0-41); Albumin Level 3.6 g/dL (3.5-5.2); Alkaline Phosphatase 85 IU/L (40-130); Aspartate Amino Transferase 16 U/L (0-40); Blood Urea Nitrogen 18 mg/dL (6-20); Calcium 8.6 mg/dL (8.5-10.5); Carbon Dioxide 31 mmol/L (22-29); Chloride 97 mmol/L (98-107); Globulin 3.1 g/dL (1.3-4.6); Glomerular Filtration Rate 121.4 mL/min (90-130); Glucose 97 mg/dL (65-115); Magnesium 1.9 mg/dL (1.7-2.3); Osmolality Calculated 290 mOsm/kg (285-295); Sodium 139 mmol/L (136-145); Total Bilirubin 0.7 mg/dL (0.15-1.2); Total Protein 6.7 g/dL (6.6-8.7)
[2021-06-25 04:48] LABS: D Dimer 2.19 ug/mIFEU (0-0.59)
[2021-06-25] MEDS: aspirin 325 mg Tablet PO (06:46)
--- NOTE | 2021-06-25 08:00 | PC.NURSE ---
Pt lying in bed resting and talking to staff. Resp even and non-labored no distress or sob noted. Pt had no c/o pain or discomfort at the present time. No needs voiced. Call light in reach. Will cont to monitor.
[2021-06-25] MEDS: budesonide 0.5 mg/2 mL Neb INHALATION ×2 (09:24→21:31)
[2021-06-25] MEDS: zinc gluconate 50 mg Tablet PO (09:44)
[2021-06-25] MEDS: ARIPiprazole 10 mg Tablet 5 MG PO (09:44)
[2021-06-25] MEDS: cyanocobalamin 1,000 mcg Tablet 1000 MCG PO (09:44)
[2021-06-25] MEDS: ferrous gluconate 324 mg Tablet PO ×2 (09:44→17:29)
[2021-06-25] MEDS: benzonatate 100 mg Capsule PO ×3 (09:44→21:05)
[2021-06-25] MEDS: omega-3 fatty acids 1,000 mg Capsule 1000 MG PO (09:44)
[2021-06-25 14:59] LABS: Coronavirus Test Green County Not Detected
--- NOTE | 2021-06-25 20:17 | P.PN_ITS ---
Subjective Subjective: Interval history: He is overall feeling better. Denies chest pain or pressure. Vitals/I&O/Wt Last Vital Signs Temp 98.7 F 06/25/21 14:00 Pulse 86 06/25/21 15:11 Resp 16 06/25/21 15:11 BP 132/80 06/25/21 14:00 Pulse Ox 95 06/25/21 15:11 06/25/21 06/25/21 06/25/21 06:59 14:59 22:59 Intake Total 240 / 240 Output Total 500 / 500 Balance -260 / -260 Weight last 48 hrs Weight 226.433 kg Physical Exam Const: COMMON NORMALS: no acute distress, patient oriented x3 and alert GENERAL APPEARANCE: cooperative NUTRITIONAL APPEARANCE: obese morbidly obese ORIENTATION/CONSCIOUSNESS: Yes awake HENMT: COMMON NORMALS: oropharynx normal Neck/C-Spine: COMMON NORMALS: no JVD Resp: COMMON NORMALS: normal respiratory effort and clear to auscultation bilaterally AUSCULTATION: clear to auscultation bilaterally Cardio: COMMON NORMALS: no JVD, regular rhythm, S1 normal heart sound present, S2 normal heart sound present and No murmurs present (Cardio) RHYTHM: regular rhythm HEART SOUNDS: S1 normal heart sound present and S2 normal heart sound present GI: COMMON NORMALS: Normal to inspection, nondistended, normoactive bowel sounds present, Soft to palpation and non-tender PALPATION: Yes Soft to palpation Extremity: COMMON NORMALS: no joint enlargement GENERAL: Yes edema (Trace LE edema) Neuro: COMMON NORMALS: patient oriented x3 and moves all extremities SENSORIUM/ORIENTATION: Yes alert Skin: OTHER: Seborrheic dermatitis face, scalp Data : 06/25/21 03:58 06/25/21 03:58 Micro: Microbiology 06/23/21 18:56 Blood Culture - Preliminary Blood 06/23/21 18:50 Blood Culture - Preliminary Blood Bacillus sp not b. anthracis 06/25/21 03:54 Blood Culture - Preliminary Blood SPECIMEN COLLECTED 06/25/21 03:58 Blood Culture - Preliminary Blood SPECIMEN COLLECTED A&P Assessment and plan (1) Hypercapnia: ABG 7.37/64.9/76.2/37.3. Slightly better compared to prior 7.3/72.4. Overnight pulse oximetry. Will need BiPAP after discharge. Status: Acute (2) Hypoxia: No PE main right and left pulmonary arteries, smaller vessels could not be evaluated. No DVT on lower extremity duplex. Patchy multilobar airspace opacities. COVID-19 negative. Echocardiogram with normal ejection fraction. There appeared to be septal bounce possibly secondary to intraventricular conduction delay. No pericardial effusion. No significant valve abnormalities although aortic valve was not visualized. D-dimer decreasing. Continue heparin. Reassess in the morning. Status: Acute (3) ANGELA (obstructive sleep apnea): Would benefit from BiPAP. Status: Suspected (4) Uncompensated respiratory acidosis: Status: Acute (5) KT (acute kidney injury): Resolved. Status: Acute (6) HTN (hypertension): At goal Status: Acute (7) Morbid obesity: Plans to follow-up regarding weight loss. Discussed with him risks of obesity, benefits of weight loss. Status: Acute (8) Acute psychosis: Had been under care of psychiatric team. Appears less confused as per documentation. Continue Abilify. Status: Acute Additional A&P Information Acute kidney injury: Resolved Attestations Medical Necessity Statement*: Continue admission for assessment and optimization of management of hypercapnic respiratory failure, acute psychosis. Coding Level of Care Code Acute Business System Consultant for g Fwd Diagnoses Hypercapnia R06.89 Hypoxia R09.02 ANGELA (obstructive sleep apnea) G47.33 Uncompensated respiratory acidosis E87.2 KT (acute kidney injury) N17.9 HTN (hypertension) I10 Morbid obesity E66.01 Acute psychosis F23
[2021-06-26] VITALS (7 sets, daily range): BP systolic 115–141; BP diastolic 71–80; PULSE 83–92; RESP 17–24; TEMP 36.6; O2SAT 86–94
[2021-06-26] MEDS: ipratropium-albuterol 3 mL Neb INHALATION ×2 (02:16→07:22)
[2021-06-26] MEDS: heparin 5,000 unit/mL INJ 1 mL 5000 UNIT SUBCUT ×2 (03:15→12:33)
[2021-06-26 04:10] LABS: Basophils # 0.1 10^3/uL (0.0-0.1); Basophils % 0.6 %; Eosinophils # 0.4 10^3/uL (0.0-0.8); Eosinophils % 4.6 %; Hematocrit 47.1 % (42.0-52.0); Hemoglobin 13.9 g/dL (11.7-16.6); Lymphocytes # 2.5 10^3/uL (0.8-4.8); Lymphocytes % 32.3 %; Mean Corpuscular HGB Conc 29.5 g/dL (30.0-36.0); Mean Corpuscular Hemoglobin 24.4 pg (28.0-34.0); Mean Corpuscular Volume 82.8 fl (80-94); Monocytes # 0.5 10^3/uL (0.2-0.9); Monocytes % 5.8 %; Neutrophils # 4.39 10^3/uL (1.8-7.7); Neutrophils % 56.3 %; Nucleated Red Blood Cells % 0 %; Platelet Count 252 10^3/cmm (130-400); Red Blood Count 5.69 10^6/uL (4.1-5.3); Red Cell Distribution Width 16.5 % (12.1-15.1); White Blood Count 7.8 10^3/uL (4.0-10.0)
[2021-06-26 04:38] LABS: Alanine Aminotransferase 20 U/L (0-41); Albumin Level 3.4 g/dL (3.5-5.2); Alkaline Phosphatase 77 IU/L (40-130); Aspartate Amino Transferase 17 U/L (0-40); Blood Urea Nitrogen 13 mg/dL (6-20); Calcium 8.6 mg/dL (8.5-10.5); Carbon Dioxide 30 mmol/L (22-29); Chloride 98 mmol/L (98-107); Globulin 3.5 g/dL (1.3-4.6); Glucose 97 mg/dL (65-115); Magnesium 1.7 mg/dL (1.7-2.3); Osmolality Calculated 286 mOsm/kg (285-295); Sodium 138 mmol/L (136-145); Total Bilirubin 0.7 mg/dL (0.15-1.2); Total Protein 6.9 g/dL (6.6-8.7)
--- NOTE | 2021-06-26 06:00 | XR_ITS ---
WS: [id number] Exam: XR chest 1V portable [id number] Date/Time of Exam: 06/26/2021 6:43 AM Reason For Exam: covid Comparison 06/24/2021. Bibasal infiltrates have improved since prior study. The lungs are fully expanded. Cardiomediastinal silhouette is unremarkable for technique. Bony structures are intact. XR/XR chest 1V portable [id number] IMPRESSION: 1. Improved infiltrates in the lower lung zones when compared to the last exam.
[2021-06-26] MEDS: aspirin 325 mg Tablet PO (06:07)
--- NOTE | 2021-06-26 06:39 | W.PM.NPUPNS ---
Subjective NPU Subjective: Interval history: He says that he is much less confused today. His memory is still very cloudy for the last 2 weeks. Hypercapnia is improved. Mental Status Exam MSE Comments: This is a 46-year old morbidly obese male who appears about his stated age. He is in a bariatric bed with an oxygen from nasal cannula. He is pleasant and cooperative and in no acute distress. psychomotor activity is decreased. It is probably normal for a person of his weight laying in bed Speech is at a regular rate and rhythm, normal volume, good articulation, not pressured. Alert, oriented X3 Attention and concentration appears to be intact. Memory is decreased. He has little recollection for recent events. Mood is good. Affect is euthymic. Thought process is logical and goal-directed. Thought content: Denies auditory and visual hallucinations. No delusions or paranoia are noted. No current suicidal ideation, and no homicidal ideation. Fund of knowledge is appears to be average. Insight and judgment appear to be within normal limits. Impulse control is good. Cognition: Patient Appearance: Disheveled/Poor Hygiene Level of Consciousness: Inappropriate Patient Cognition Impaired: Yes Ability to Follow Directions: Poor Patient Orientation (long list): Person, Place, Time, Name and Age Comprehension Ability: No Impairment Hallucination Type: None Delusion Description: Not Present Thought Process: Appropriate Affect: Affect Description: Appropriate Behavior: Patient Behavior: Appropriate Speech Pattern: Appropriate Vitals/I&O/Wt Last Vital Signs Temp 98 F 06/26/21 05:26 Pulse 84 06/26/21 05:26 Resp 21 H 06/26/21 05:26 BP 115/71 06/26/21 05:26 Pulse Ox 91 06/26/21 05:26 06/25/21 06/25/21 06/26/21 14:59 22:59 06:59 Intake Total 240 / 240 200 / 440 0 / 440 Output Total 500 / 500 950 / 1450 400 / 1850 Balance -260 / -260 -750 / -1010 -400 / -1410 Weight last 48 hrs Weight 226.343 kg Weight 226.343 kg Data NPU : 06/26/21 03:56 06/26/21 03:56 Micro: Microbiology 06/25/21 03:54 Blood Culture - Preliminary Blood NEGATIVE TO DATE 06/25/21 03:58 Blood Culture - Preliminary Blood NEGATIVE TO DATE 06/23/21 18:56 Blood Culture - Preliminary Blood 06/23/21 18:50 Blood Culture - Preliminary Blood Bacillus sp not b. anthracis Microbiology 06/25/21 03:54 Blood Blood Culture - Preliminary NEGATIVE TO DATE 06/25/21 03:58 Blood Blood Culture - Preliminary NEGATIVE TO DATE 06/23/21 18:56 Blood Blood Culture - Preliminary 06/23/21 18:50 Blood Blood Culture - Preliminary Bacillus sp not b. anthracis A&P Additional A&P Information This is a 46-year-old morbidly obese male who was brought in for psychosis including auditory hallucinations. He has been very confused and has very bad short-term memory. He has improved dramatically with improvement in his lung function and decrease in hypercapnia. He is cleared for discharge from a psychiatric point of view. Plan: 1. Continue his medical medications. Abilify 5 mg every morning 2. Continue every 15 minute checks for safety. He does not need a sitter. He is not suicidal and has not had any unusual behaviors. 3. Encourage individual, group and milieu therapies. 4. Encourage sober living treatment after discharge at the highest level of care to which he is willing to commit. 5. We will monitor for safety for himself in the community prior to discharge. Involuntary Hold Information 96 Hour Hold: 96 Hour Involuntary Admission: Yes Attestations NPU Medical Necessity Statement*: Inpatient hospitalization is medically necessary and the clinically appropriate intervention at this time. Coding Level of Care Code Acute [employer] Hand for Kris Salazar
[2021-06-26] MEDS: budesonide 0.5 mg/2 mL Neb INHALATION (07:22)
[2021-06-26] MEDS: omega-3 fatty acids 1,000 mg Capsule 1000 MG PO (09:00)
[2021-06-26] MEDS: zinc gluconate 50 mg Tablet PO (09:00)
[2021-06-26] MEDS: cyanocobalamin 1,000 mcg Tablet 1000 MCG PO (09:00)
[2021-06-26] MEDS: benzonatate 100 mg Capsule PO (09:00)
[2021-06-26] MEDS: ferrous gluconate 324 mg Tablet PO (09:00)
[2021-06-26] MEDS: ARIPiprazole 10 mg Tablet 5 MG PO (09:00)
--- NOTE | 2021-06-26 12:41 | P.DS_ITS ---
Discharge Providers Date of Admission: 06/21/21 13:53 Date of Discharge: June 26, 2021 Attending Provider at Admission: Mal May MD Attending Provider at Discharge: Mal May MD Primary Care Provider: Melissa Alva MD Diagnoses at Discharge Discharge Diagnosis (1) Hypercapnia: Status: Acute (2) Hypoxia: Status: Acute (3) ANGELA (obstructive sleep apnea): Status: Suspected (4) Uncompensated respiratory acidosis: Status: Acute (5) KT (acute kidney injury): Status: Acute (6) HTN (hypertension): Status: Acute (7) Morbid obesity: Status: Acute (8) Acute psychosis: Status: Acute Reason for Visit Reason for Visit: PSYCH Hospital Course Hospital Course Pleasant 46-year-old gentleman with morbid obesity was admitted due to acute mental status changes, confusion, severe short-term memory deficit, reports of hallucinations, thought to be acute psychosis, initially admitted to neuropsychiatric unit for evaluation, however, noted to be hypoxic, hypercapnic. D-dimer noted elevated at 15, no PE noted in right or left main pulmonary arteries, smaller vessels could not be evaluated. Patchy multilobar opacities, possibly transient pulmonary edema secondary to untreated ANGELA, possibly atypical/viral pneumonia, was assessed for COVID-19 and negative, without signs of sepsis or ongoing bacterial infection. No cough or shortness of breath currently. Duplex negative for DVT. Was transiently on anticoagulation. D- dimer decreasing. For hypercapnia was treated with BiPAP, noted hypercapnic on ABG, initially with uncompensated hypercapnia 7.3/72.4/81.8/35.6 with respiratory acidosis, with treatment with BiPAP gradual improvement, 7.37/64.9/76.7. Overnight pulse oximetry with 60% saturation 80-89%. Will need BiPAP of his own. Appears multifactorial condition with obesity hypoventilation syndrome causing hypercapnia, as well as obstructive sleep apnea contributing to hypoxia. Mental status changes/acute psychosis gradually improved. Has had no recurrence of hallucinations. He is awake and alert, pleasant, conversant, with good insight into his condition. Intends to follow-up with regards to morbid obesity, states has not been moving around as much as he should. Has been reassessed by psychiatry and cleared for discharge from their perspective. Olanzapine is stopped, is transition to aripiprazole which she was receiving in the hospital. We are attempting to get BiPAP set up for him on discharge based on his abnormalities found on the studies. This is requested for him, however, if unable to set up as per discussion with him we will refer him also for soonest available sleep study. Given he has not been very mobile, with D-dimer elevation, although no major PE, at risk of some VTE, will continue on extended VT prophylaxis following discharge. Please follow up with regards to arrangements for BiPAP. Please follow-up and assist him with weight loss. KT on presentation, resolved. HCTZ for now is discontinued. He tolerated resumption of lisinopril. Please reassess renal function. Incidentally noted iron deficiency in the hospital, iron saturation is 9. Started on iron supplementation. Please follow-up regarding her iron deficiency anemia work-up, please assess by FIT, consider referral for endoscopic evaluation. Physical Exam Const: COMMON NORMALS: no acute distress, patient oriented x3 and alert GENERAL APPEARANCE: cooperative NUTRITIONAL APPEARANCE: obese morbidly obese ORIENTATION/CONSCIOUSNESS: Yes awake HENMT: COMMON NORMALS: oropharynx normal Neck/C-Spine: COMMON NORMALS: no JVD Resp: COMMON NORMALS: normal respiratory effort and clear to auscultation bilaterally AUSCULTATION: clear to auscultation bilaterally Cardio: COMMON NORMALS: no JVD, regular rhythm, S1 normal heart sound present, S2 normal heart sound present and No murmurs present (Cardio) RHYTHM: regular rhythm HEART SOUNDS: S1 normal heart sound present and S2 normal heart sound present GI: COMMON NORMALS: Normal to inspection, nondistended, normoactive bowel sounds present, Soft to palpation and non-tender PALPATION: Yes Soft to palpation Extremity: COMMON NORMALS: no joint enlargement GENERAL: Yes edema (Trace LE edema) Neuro: COMMON NORMALS: patient oriented x3 and moves all extremities SENSORIUM/ORIENTATION: Yes alert Skin: OTHER: Seborrheic dermatitis face, scalp Discharge Data Data Completed and Pending: Completed Studies During Hospitalization Category Date Time Status CT angio chest PE protcl [id number] Urge nt Cat Scan 06/23/21 18:42 Completed XR chest 1V clovis ble [id number] Q48H Exams 06/24/21 06:00 Completed XR chest 1V clovis ble [id number] Q48H Exams 06/26/21 06:00 Completed XR chest 1V clovis ble [id number] Stat Exams 06/23/21 07:42 [place] [id number] Routin e Ultrasound 06/24/21 21:06 Completed CV. echo complete * [id number] Routine Ultrasound 06/24/21 18:40 Completed Pending at discharge Category Date Time Status XR chest 1V [place] ble [id number] Q48H Exams 06/28/21 06:00 Ordered Blood Culture AM LABS Lab 06/25/21 03:54 Results Blood Culture Sta t Lab 06/23/21 18:50 Results C Reactive Protei n Q48H Lab 06/27/21 04:00 Ordered Complete Blood Co unt w/Auto AM LABS Lab 06/27/21 04:00 Ordered Comprehensive Met abolic Panel AM LA BS Lab 06/27/21 04:00 Ordered D Dimer Q48H Lab 06/27/21 04:00 Ordered Drug Screen, Urin e Stat Lab 06/21/21 11:04 Uncollected Magnesium AM LABS Lab 06/27/21 04:00 Ordered Sputum Culture an d Gram Stain Stat Lab 06/23/21 22:37 Uncollected Labs from last 24 hours 06/26/21 06/26/21 06/23/21 03:56 03:56 18:56 WBC 7.8 RBC 5.69 H Hgb 13.9 Hct 47.1 MCV 82.8 MCH 24.4 L MCHC 29.5 L RDW 16.5 H Plt Count 252 MPV 9.0 Neut % (Auto) 56.3 Lymph % (Auto) 32.3 [place] % (Auto) 5.8 Eos % (Auto) 4.6 Baso % (Auto) 0.6 Neut # (Auto) 4.39 Lymph # (Auto) 2.5 [place] # (Auto) 0.5 Eos # (Auto) 0.4 Baso # (Auto) 0.1 Nucleated RBC % (a uto) 0 Nucleated RBCs # 0.0 D-Dimer 15.39 H Sodium 138 Potassium 4.0 Chloride 98 Carbon Dioxide 30 H Anion Gap 14.0 BUN 13 Creatinine 0.6 L GFR Calculation 145.0 H Glucose 97 Calculated Osmolal ity 286 Calcium 8.6 Magnesium 1.7 Total Bilirubin 0.7 AST 17 ALT 20 Alkaline Phosphata se 77 Total Protein 6.9 Albumin 3.4 L Globulin 3.5 Nasal/Oral COVID-1 9 PCR 06/23/21 09:25 WBC RBC Hgb Hct MCV MCH MCHC RDW Plt Count MPV Neut % (Auto) Lymph % (Auto) [place] % (Auto) Eos % (Auto) Baso % (Auto) Neut # (Auto) Lymph # (Auto) [place] # (Auto) Eos # (Auto) Baso # (Auto) Nucleated RBC % (a uto) Nucleated RBCs # D-Dimer Sodium Potassium Chloride Carbon Dioxide Anion Gap BUN Creatinine GFR Calculation Glucose Calculated Osmolal ity Calcium Magnesium Total Bilirubin AST ALT Alkaline Phosphata se Total Protein Albumin Globulin Nasal/Oral COVID-1 9 PCR Not detected Vitals: Last Vital Signs Temp 98 F 06/26/21 05:26 Pulse 92 06/26/21 07:27 Resp 18 06/26/21 07:24 BP 115/71 06/26/21 05:26 Pulse Ox 94 06/26/21 07:24 Discharge Plan Discharge Patient Disposition: Home Health Service Condition: Stable Prescriptions: New aripiprazole 10 mg Tablet 5 mg PO DAILY Qty: 90 RF: 0 Xarelto 10 mg tablet 10 mg PO DAILY 35 Days RF: 0 ferrous gluconate 324 mg (37.5 mg iron) Tablet 324 mg PO EVERY OTHER DAY Qty: 90 RF: 0 Continued aspirin 325 mg Tablet 325 mg PO QAM RF: 0 lisinopril 20 mg tablet 20 mg PO DAILY RF: 0 risperidone 1 mg tablet 1 mg PO BEDTIME RF: 0 Fish Oil 1 cap PO DAILY RF: 0 Vitamin B-12 1 tab PO DAILY RF: 0 Discontinued olanzapine 5 mg tablet 5 mg PO DAILY RF: 0 hydrochlorothiazide 12.5 mg tablet 12.5 mg PO BEDTIME RF: 0 Discharge Orders: Discharge Order (Routine); Ordered 06/26/21 Ordered By: Deacon Vegas Other Ambulatory Orders: DME: BIPAP (Order) Timeframe: 1 Day Location: None Selected Ordered By: Deacon Vegas Referrals: [facility] [place] D[facility]atology [Provider Group] - 2 weeks (Seborrheic dermatitis) Melissa Alva MD [Primary Care Provider] - 4-7 days Discharge Diet: Cardiac Discharge Activity: Increase activity as tolerated and Cpap/Bipap as instructed Patient Instructions: Aripiprazole (By mouth), Rivaroxaban (By mouth), Sleep Apnea (GEN), Obesity (GEN), Acute Respiratory Failure (GEN) Activity Restrictions/Additional Instructions: Please follow-up with arrangements for BiPAP. If unable to arrange directly, please follow-up with sleep study as discussed. Please follow-up with your primary doctor to help coordinate the efforts. Otherwise please contact case management department here at the hospital in case of any questions. Please note you need to have the BiPAP set up as soon as possible to prevent additional episodes of severe accumulation of carbon dioxide. Please work with your primary provider to assist you in losing weight. Please note that due to increased risk of blood clots you are continued on extended blood clot prophylaxis with Xarelto which is a blood thinner medication. This medication may increase your risk of bleeding. Please avoid any activities that may risk of bleeding. In case of minor bleeding hold medication. In case of concerning bleeding, seek medical attention without delay. Please discuss with your primary doctor symptoms of acute psychosis which she had on presentation which had resolved. This may have been related to metabolic abnormalities with respiratory acidosis and accumulation of carbon dioxide. In case of lack of full control of symptoms, discussed with your primary doctor also referral and follow-up with psychiatry. Please note on presentation he had acute kidney injury which had resolved. Due to this at this time hydrochlorothiazide Giurgius at least temporarily discontinued. Please have your primary doctor follow-up your kidney function in office. Please avoid any medications that may injure your kidneys like NSAIDs including naproxen, Aleve, etc. Please follow-up with your primary doctor with regards to iron deficiency anemia. Please discuss assessment by Hemoccult testing and referral for endoscopic evaluation to assess for GI blood loss, possible polyp and exclude any malignancy. Discharge Attestations Time Spent in Discharge Care*: greater than 30 min Quality Metrics Clinical Quality Measures During this hospital stay, did patient experience: None Coding Level of Care Code Acute g DC note Diagnoses Hypercapnia R06.89 Hypoxia R09.02 ANGELA (obstructive sleep apnea) G47.33 Uncompensated respiratory acidosis E87.2 KT (acute kidney injury) N17.9 HTN (hypertension) I10 Morbid obesity E66.01 Acute psychosis F23
--- NOTE | 2021-06-26 14:41 | W.PM.NPUDCS ---
Diagnoses at Discharge Discharge Diagnosis (1) Hypercapnia: Status: Acute (2) Hypoxia: Status: Acute (3) ANGELA (obstructive sleep apnea): Status: Suspected (4) Uncompensated respiratory acidosis: Status: Acute (5) KT (acute kidney injury): Status: Acute (6) HTN (hypertension): Status: Acute (7) Morbid obesity: Status: Acute (8) Acute psychosis: Status: Acute Reason for Visit Reason for Visit: PSYCH Brief History: History of Present Illness Hima Nicolas is a 46 year old male who was admitted through the emergency room with the following report: HPI - Psych General: Chief Complaint: Psychiatric Symptoms Stated Complaint: PSYCH History of Present Illness: HPI Narrative: 46-year-old male presents to the emergency room via EMS. Patient is having acute psychosis with visual and auditory hallucinations at various times he gets extremely aggressive. Is unable to give us any meaningful history he does mention that he has been on Zyprexa and risperidone in the past EMS said they were told he had just started it. EMS was called by a family member at home (mother). On their arrival there he was ambulatory and they were able to coax him to a cot. Patient is extremely large with a BMI of 61. Initially when we attempted to redirect him to sit on the exam gurney he began showing signs of aggressiveness. We were able to convince him eventually to move to the cot. He was given 2 mg of Ativan and 20 and Geodon prior to that. He is not able to give us any further history due to his acute psychosis. MD complaint: altered mental status Onset (ago): unknown Duration: constant History of same: Yes Relieving factors: none Exacerbating factors: none Associated psychiatric symptoms: auditory hallucinations and visual hallucinations Associated symptoms: Reports auditory hallucinations and visual hallucinations Treatments prior to arrival: none The emergency room physician filled out an affidavit stating patient presented to the ER acutely psychotic with visual and auditory hallucinations . He initiated a 96-hour hold. He was admitted to the neuropsychiatry unit for definitive treatment of his psychosis. He is confused and I unable to give much history. What history he gives is probably unreliable. He really had to think about most answers that he gave. Sometimes he was unable to answer my questions. 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 He says that he walks to the bus on his own and when he gets to school he walks to his classroom and is sitting in a regular office chair most of the time. He says that the last time that he went to school was Friday. He says that on Friday his leg was hurting and he was afraid that his leg would break if he got up out of his recliner and went to school. At some point on Friday he was watching the news and became confused. He denies hearing any voices or seeing anything. He says that he went to sleep and somehow he ended up in the emergency room. He denies ever seeing a psychiatrist or being in a psychiatric hospital. He says that he is taking risperidone 1 mg, lisinopril and hydrochlorothiazide. He does say that he has gained a lot of weight over the last 10 years. His mother called and spoke to the director. She said that he has bipolar disorder and had a break 12 years ago. He has been on risperidone since then and has not had a break until recently. She said that he had gained substantial weight over that 12 years and she felt that we should change him to something else. Evidently his doctor tried to change him to Zyprexa but he is only taken that for about 3 days. Hospital Course Hospital Course Pleasant 46-year-old gentleman with morbid obesity was admitted due to acute mental status changes, confusion, severe short-term memory deficit, reports of hallucinations, thought to be acute psychosis, initially admitted to neuropsychiatric unit for evaluation, however, noted to be hypoxic, hypercapnic. D-dimer noted elevated at 15, no PE noted in right or left main pulmonary arteries, smaller vessels could not be evaluated. Patchy multilobar opacities, possibly transient pulmonary edema secondary to untreated ANGELA, possibly atypical/viral pneumonia, was assessed for COVID-19 and negative, without signs of sepsis or ongoing bacterial infection. No cough or shortness of breath currently. Duplex negative for DVT. Was transiently on anticoagulation. D-dimer decreasing. For hypercapnia was treated with BiPAP, noted hypercapnic on ABG, initially with uncompensated hypercapnia 7.3/72.4/81.8/35.6 with respiratory acidosis, with treatment with BiPAP gradual improvement, 7.37/64.9/76.7. Overnight pulse oximetry with 60% saturation 80-89%. Will need BiPAP of his own. Appears multifactorial condition with obesity hypoventilation syndrome causing hypercapnia, as well as obstructive sleep apnea contributing to hypoxia. Mental status changes/acute psychosis gradually improved. Has had no recurrence of hallucinations. He is awake and alert, pleasant, conversant, with good insight into his condition. Intends to follow-up with regards to morbid obesity, states has not been moving around as much as he should. Has been reassessed by psychiatry and cleared for discharge from their perspective. Olanzapine is stopped, is transition to aripiprazole which she was receiving in the hospital. We are attempting to get BiPAP set up for him on discharge based on his abnormalities found on the studies. This is requested for him, however, if unable to set up as per discussion with him we will refer him also for soonest available sleep study. Given he has not been very mobile, with D-dimer elevation, although no major PE, at risk of some VTE, will continue on extended VT prophylaxis following discharge. Please follow up with regards to arrangements for BiPAP. Please follow-up and assist him with weight loss. KT on presentation, resolved. HCTZ for now is discontinued. He tolerated resumption of lisinopril. Please reassess renal function. Incidentally noted iron deficiency in the hospital, iron saturation is 9. Started on iron supplementation. Please follow-up regarding her iron deficiency anemia work-up, please assess by FIT, consider referral for endoscopic evaluation. Involuntary Hold Information 96 Hour Hold: 96 Hour Involuntary Admission: Yes Mental Status Exam MSE Comments: This is a 46-year old morbidly obese male who appears about his stated age. He is in a bariatric bed with an oxygen from nasal cannula. He is pleasant and cooperative and in no acute distress. psychomotor activity is decreased. It is probably normal for a person of his weight laying in bed Speech is at a regular rate and rhythm, normal volume, good articulation, not pressured. Alert, oriented X3 Attention and concentration appears to be intact. Memory is decreased. He has little recollection for recent events. Mood is good. Affect is euthymic. Thought process is logical and goal-directed. Thought content: Denies auditory and visual hallucinations. No delusions or paranoia are noted. No current suicidal ideation, and no homicidal ideation. Fund of knowledge is appears to be average. Insight and judgment appear to be within normal limits. Impulse control is good. Cognition: Patient Appearance: Disheveled/Poor Hygiene Level of Consciousness: Inappropriate Patient Cognition Impaired: Yes Ability to Follow Directions: Poor Patient Orientation (long list): Person, Place, Time, Name and Age Comprehension Ability: No Impairment Hallucination Type: None Delusion Description: Not Present Thought Process: Appropriate Affect: Affect Description: Appropriate Behavior: Patient Behavior: Appropriate Speech Pattern: Appropriate Discharge Data Data Completed and Pending: Completed Studies During Hospitalization Category Date Time Status CT angio chest PE protcl [id number] Urge nt Cat Scan 06/23/21 18:42 Completed XR chest 1V [place] ble 97324 Q48H Exams 06/24/21 06:00 Completed XR chest 1V clovis ble [id number] Q48H Exams 06/26/21 06:00 Completed XR chest 1V clovis ble [id number] Stat Exams 06/23/21 07:42 [place] [id number] Routin e Ultrasound 06/24/21 21:06 Completed CV. echo complete * [id number] Routine Ultrasound 06/24/21 18:40 Completed Pending at discharge Category Date Time Status XR chest 1V [place] ble 80080 Q48H Exams 06/28/21 06:00 Ordered Blood Culture AM LABS Lab 06/25/21 03:54 Results Blood Culture Sta t Lab 06/23/21 18:50 Results C Reactive Protei n Q48H Lab 06/27/21 04:00 Ordered Complete Blood Co unt w/Auto AM LABS Lab 06/27/21 04:00 Ordered Comprehensive Met abolic Panel AM LA BS Lab 06/27/21 04:00 Ordered D Dimer Q48H Lab 06/27/21 04:00 Ordered Drug Screen, Urin e Stat Lab 06/21/21 11:04 Uncollected Magnesium AM LABS Lab 06/27/21 04:00 Ordered Sputum Culture an d Gram Stain Stat Lab 06/23/21 22:37 Uncollected Labs from last 24 hours 06/26/21 06/26/21 06/23/21 03:56 03:56 18:56 WBC 7.8 RBC 5.69 H Hgb 13.9 Hct 47.1 MCV 82.8 MCH 24.4 L MCHC 29.5 L RDW 16.5 H Plt Count 252 MPV 9.0 Neut % (Auto) 56.3 Lymph % (Auto) 32.3 [place] % (Auto) 5.8 Eos % (Auto) 4.6 Baso % (Auto) 0.6 Neut # (Auto) 4.39 Lymph # (Auto) 2.5 [place] # (Auto) 0.5 Eos # (Auto) 0.4 Baso # (Auto) 0.1 Nucleated RBC % (a uto) 0 Nucleated RBCs # 0.0 D-Dimer 15.39 H Sodium 138 Potassium 4.0 Chloride 98 Carbon Dioxide 30 H Anion Gap 14.0 BUN 13 Creatinine 0.6 L GFR Calculation 145.0 H Glucose 97 Calculated Osmolal ity 286 Calcium 8.6 Magnesium 1.7 Total Bilirubin 0.7 AST 17 ALT 20 Alkaline Phosphata se 77 Total Protein 6.9 Albumin 3.4 L Globulin 3.5 Nasal/Oral COVID-1 9 PCR 06/23/21 09:25 WBC RBC Hgb Hct MCV MCH MCHC RDW Plt Count MPV Neut % (Auto) Lymph % (Auto) [place] % (Auto) Eos % (Auto) Baso % (Auto) Neut # (Auto) Lymph # (Auto) [place] # (Auto) Eos # (Auto) Baso # (Auto) Nucleated RBC % (a uto) Nucleated RBCs # D-Dimer Sodium Potassium Chloride Carbon Dioxide Anion Gap BUN Creatinine GFR Calculation Glucose Calculated Osmolal ity Calcium Magnesium Total Bilirubin AST ALT Alkaline Phosphata se Total Protein Albumin Globulin Nasal/Oral COVID-1 9 PCR Not detected Vitals: Last Vital Signs Temp 98 F 06/26/21 05:26 Pulse 92 06/26/21 07:27 Resp 18 06/26/21 07:24 BP 115/71 06/26/21 05:26 Pulse Ox 86 L 06/26/21 13:24 Discharge Plan Discharge Patient Disposition: Home Health Service Condition: Stable Prescriptions: New aripiprazole 10 mg Tablet 5 mg PO DAILY Qty: 90 RF: 0 ferrous gluconate 324 mg (37.5 mg iron) Tablet 324 mg PO EVERY OTHER DAY Qty: 90 RF: 0 Xarelto 10 mg tablet 10 mg PO DAILY 35 Days RF: 0 Continued aspirin 325 mg Tablet 325 mg PO QAM RF: 0 lisinopril 20 mg tablet 20 mg PO DAILY RF: 0 risperidone 1 mg tablet 1 mg PO BEDTIME RF: 0 Fish Oil 1 cap PO DAILY RF: 0 Vitamin B-12 1 tab PO DAILY RF: 0 Discontinued olanzapine 5 mg tablet 5 mg PO DAILY RF: 0 hydrochlorothiazide 12.5 mg tablet 12.5 mg PO BEDTIME RF: 0 Discharge Orders: Discharge Order (Routine); Ordered 06/26/21 Ordered By: Deacon Vegas Other Ambulatory Orders: Sleep Study/Titration (Routine) Timeframe: 1 Day Facility: [facility] - Location: [facility] Ordered By: Deacon Vegas DME: BIPAP (Order) Timeframe: 1 Day Location: None Selected Ordered By: Deacon Vegas DME: Oxygen (Order) Location: None Selected Ordered By: Deacon Vegas Referrals: [facility] [place] [facility] [Provider Group] - 2 weeks (Please follow-up on Jul.09 at 10:00A.M. If you have any questions or need to reschedule. Please call ) Melissa Alva MD [Primary Care Provider] - 4-7 days (Your follow-up appointment is scheduled on at 9:45A.M. If you have any questions or need to reschedule. Please call ) Discharge Diet: Cardiac Discharge Activity: Increase activity as tolerated and Cpap/Bipap as instructed Patient Instructions: Aripiprazole (By mouth), Rivaroxaban (By mouth), Sleep Apnea (GEN), Obesity (GEN), Acute Respiratory Failure (GEN) Activity Restrictions/Additional Instructions: Please follow-up with arrangements for BiPAP. If unable to arrange directly, please follow-up with sleep study as discussed. Please follow-up with your primary doctor to help coordinate the efforts. Otherwise please contact case management department here at the hospital in case of any questions. Please note you need to have the BiPAP set up as soon as possible to prevent additional episodes of severe accumulation of carbon dioxide. Please work with your primary provider to assist you in losing weight. Please note that due to increased risk of blood clots you are continued on extended blood clot prophylaxis with Xarelto which is a blood thinner medication. This medication may increase your risk of bleeding. Please avoid any activities that may risk of bleeding. In case of minor bleeding hold medication. In case of concerning bleeding, seek medical attention without delay. Please discuss with your primary doctor symptoms of acute psychosis which she had on presentation which had resolved. This may have been related to metabolic abnormalities with respiratory acidosis and accumulation of carbon dioxide. In case of lack of full control of symptoms, discussed with your primary doctor also referral and follow-up with psychiatry. Please note on presentation he had acute kidney injury which had resolved. Due to this at this time hydrochlorothiazide Giurgius at least temporarily discontinued. Please have your primary doctor follow-up your kidney function in office. Please avoid any medications that may injure your kidneys like NSAIDs including naproxen, Aleve, etc. Please follow-up with your primary doctor with regards to iron deficiency anemia. Please discuss assessment by Hemoccult testing and referral for endoscopic evaluation to assess for GI blood loss, possible polyp and exclude any malignancy. Discharge Attestations NPU Time Spent in Discharge Care*: less than 30 min Specific Discharge Activities: Specific discharge activities: educating patient, discussing with bilingual case manager/social workers/dc planners, documenting/other paperwork and evaluating patient/reviewing data Coding Level of Care Code Acute Chg FW DC note Diagnoses Hypercapnia R06.89 Hypoxia R09.02 ANGELA (obstructive sleep apnea) G47.33 Uncompensated respiratory acidosis E87.2 KT (acute kidney injury) N17.9 HTN (hypertension) I10 Morbid obesity E66.01 Acute psychosis F23
--- NOTE | 2021-06-26 16:15 | PC.NURSE ---
Discharge Note Patient discharged to Home via private vehicle accompanied by mother. Discharge instructions reviewed with patient and/or event sales representative. Mobile pharmacy medications and/or prescriptions provided. Belongings/home medications returned.
== END 2021-06-26 16:15 | disposition home or self-care (01) | DRG 205 ==
LOC: ER 12:50 → NP 15:14 → CSU 06-23 20:16
PROVIDERS: Emergency Medicine; Student in an Organized Health Care Education/Training Program; Admitting Provider Psychiatry & Neurology Psychiatry; Emergency Provider Family Medicine; PCP Family Medicine; Visit Provider Psychiatry & Neurology Psychiatry
DX: E66.2 Morbid (severe) obesity with alveolar hypoventilation (principal); J96.02 Acute respiratory failure with hypercapnia; Z68.44 Body mass index [BMI] 60.0-69.9, adult; F23 Brief psychotic disorder; E87.2 Acidosis; F31.89 Other bipolar disorder; D50.9 Iron deficiency anemia, unspecified; I10 Essential (primary) hypertension
CPT/HCPCS: 36415; 36600; 71045; 71275; 80048; 80051; 80053; 80061; 80307; 81003; 82330; 82436; 82570; 82728; 82803; 82805; 83036; 83540; 83550; 83615; 83735; 83880; 84133; 84145; 84300; 84443; 85025; 85378; 85651; 85730; 85999; 86140; 86403; 87040; 87205; 87426; 87449; 87635; 87641; 87804; 93005; 93306; 93970; 94640; 94664; 96372; 97150; 97161; 97165; 97530; 99285; J1644; J1940; J2060; J3486; J7626; Q9967